=== PATIENT | male | born 1965 | race Hispanic/Latino ===

== ENCOUNTER 2021-11-09 05:42 | Emergency (ER) | payer OTHER ==
--- NOTE | 2021-11-09 09:41 | Emergency Department Report ---
ED Chest Pain HPI - General Chief Complaint: Chest Pain Stated Complaint: CHEST PAIN Time Seen by Provider: 11/09/21 09:15 Source: EMS Mode of arrival: Stretcher Limitations: No Limitations - History of Present Illness Initial Comments: Patient is a 56-year-old male who presents with midsternal chest pain radiating to the left shoulder that has been intermittent for the last 2 weeks. He describes it as a tightness that started at 4:00 this episode. He states he works second shift so he was still awake in sitting down watching TV. Pain was 8 out of 10 at its worst. He was given nitroglycerin in route and it went down to 3 out of 10. The pain is 6 out of 10 at my evaluation. He does state he had some slight "shallow breath" with it. No nausea vomiting or diaphoresis. The patient was seen at [facility] 2 weeks ago for similar pain and had a chemical stress test which was negative. He has a follow-up appointment with the stave block roller in November. Risk factors: No history of hypertension diabetes or hyperlipidemia. Family history is negative for coronary artery disease less than 65. No obesity. Positive history of tobacco use and now he has been vaping for the last several years. - Related Data Previous Rx's Medication Instructions Recorded Last Taken Type traMADoL [Ultram 50 MG tab] 50 mg PO Q6HR PRN #8 tablet 11/09/21 Unknown Rx Allergies Allergy/AdvReac Type Severity Reaction Status Date / Time morphine Allergy Hives Verified 11/09/21 05:44 Heart Score - HEART Score History: Slightly suspicious EKG: Normal Age: 45-65 Risk factors: 1-2 risk factors Troponin: < normal limit HEART Score: 2 - EKG Read Time Time EKG Completed: 22:21 EKG Read Time: 22:21 ED Review of Systems ROS: Stated complaint: CHEST PAIN Other details as noted in HPI Comment: All other systems reviewed and negative Constitutional: denies: chills, fever Eyes: denies: eye pain, eye discharge, vision change ENT: denies: ear pain, throat pain Respiratory: denies: cough, shortness of breath, wheezing Cardiovascular: chest pain. denies: palpitations, dyspnea on exertion, orthopnea, edema, syncope, paroxysmal nocturnal dyspnea Endocrine: no symptoms reported. denies: excessive sweating, intolerance to cold, intolerance to heat, increased hunger, unexplained weight gain, unexplain ed weight loss Gastrointestinal: denies: abdominal pain, nausea, vomiting, diarrhea Genitourinary: denies: urgency, dysuria Musculoskeletal: denies: back pain, joint swelling, arthralgia Skin: denies: rash, lesions Neurological: denies: headache, weakness, paresthesias Psychiatric: denies: anxiety, depression Hematological/Lymphatic: denies: easy bleeding, easy bruising ED Past Medical Hx - Past Medical History Previous Medical History?: Yes Additional medical history: CHRONIC HIP PAIN - Surgical History Past Surgical History?: No - Family History Family history: cancer (Both parents), other (Mother had CHF and her 80s but of cancer.) - Social History Smoking Status: Former Smoker (And continues to vape) Substance Use Type: None Other Social History: - Medications Home Medications: Home Medications Medication Instructions Recorded Confirmed Last Taken Type traMADoL [Ultram 50 MG tab] 50 mg PO Q6HR PRN #8 tablet 11/09/21 Unknown Rx ED Physical Exam - General Limitations: No Limitations General appearance: alert, in no apparent distress - Head Head exam: Present: atraumatic, normocephalic - Eye Eye exam: Present: normal appearance - ENT ENT exam: Present: mucous membranes moist - Neck Neck exam: Present: normal inspection, full ROM - Respiratory Respiratory exam: Present: normal lung sounds bilaterally. Absent: respiratory distress, wheezes, rales, rhonchi, stridor, chest wall tenderness, accessory muscle use - Cardiovascular Cardiovascular Exam: Present: regular rate, normal rhythm, bradycardia. Absent: systolic murmur, diastolic murmur, rubs, gallop - GI/Abdominal GI/Abdominal exam: Present: soft, normal bowel sounds. Absent: distended, tenderness, guarding, rebound, rigid - Rectal Rectal exam: Present: deferred - Extremities Exam Extremities exam: Present: normal inspection - Back Exam Back exam: Present: normal inspection - Neurological Exam Neurological exam: Present: alert, oriented X3 - Psychiatric Psychiatric exam: Present: normal affect, normal mood - Skin Skin exam: Present: warm, dry, intact, normal color. Absent: rash ED Course Vital Signs 11/09/21 11/09/21 05:44 18:10 Temperature 98.2 F 97.5 F L Pulse Rate 54 L 47 L Respiratory 16 16 Rate Blood Pressure 120/74 Blood Pressure 126/70 [Right] O2 Sat by Pulse 100 100 Oximetry - Reevaluation(s) Reevaluation #1: 11/09/21 17:45 Patient had improvement of his pain with Dilaudid and remain resting comfortably during the remainder of his stay. RICHARD score - Richard Score Age > 65: (0) No Aspirin use within the Past 7 Days: (0) No 3 or more CAD Risk Factors: (0) No 2 or more Angina events in past 24 hrs: (1) Yes Known CAD with more than 50% Stenosis: (0) No Elevated Cardiac Markers: (0) No ST Deviation Greater than 0.5mm: (0) No RICHARD Score: 1 ED Medical Decision Making - Lab Data Result diagrams: 11/09/21 09:32 11/09/21 09:32 - EKG Data 11/09/21 17:47 First EKG reveals sinus bradycardia at 43 bpm with out ischemic changes. Repeat EKG 3 hours later reveals sinus bradycardia at 48 bpm without ischemic changes. Patient does state he has a history of asymptomatic bradycardia. - Radiology Data Radiology results: report reviewed, image reviewed [facility] [address] [place] [address] XRay Report Signed Patient: TOMASA JOSE MR#: [id number] : 1965 Acct:[id number] Age/Sex: 56 / M ADM Date: 11/09/21 Loc: ED Attending Dr: Ordering Physician: QUINN CHAMBERLAIN Date of Service: 11/09/21 Procedure(s): XR chest routine 2V Accession Number(s): [id number] cc: QUINN CHAMBERLAIN Fluoro Time In Minutes: CHEST 2 VIEWS INDICATION / CLINICAL INFORMATION: Chest Pain. COMPARISON: None available. FINDINGS: SUPPORT DEVICES: None. HEART / MEDIASTINUM: No significant abnormality. LUNGS / PLEURA: No acute findings. No pneumothorax. ADDITIONAL FINDINGS: No significant additional findings. IMPRESSION: 1. No acute findings. Signer Name: Ruben cMkinney MD Signed: 11/09/2021 9:41 AM Workstation Name: [id number] Transcribed By: Dictated By: Ruben Mckinney MD Electronically Authenticated By: Ruben Mckinney MD Signed Date/Time: 11/09/21940 DD/ 9 TD/TT: - Medical Decision Making Patient is a 56-year-old male with chest pain that has been going on off and on for the last couple weeks. This episode started at 4:00 in the morning at rest. There was no change with nitroglycerin in route. He had no nausea vomiting or diaphoresis with it but did have some "shallow breathing. Patient did have a cardiac work-up including a chemical stress test at [facility] 2 weeks ago per his report. He has an appointment with a stave block roller November 24. His work-up here was essentially normal with the exception of bradycardia. Half a milligram of Dilaudid brought his pain down to nothing. He requests tramadol for his pain as well as a work note. He does not want to stay for further work- up and plans to follow-up with his stave block roller. Critical care attestation.: If time is entered above; I have spent that time in minutes in the direct care of this critically ill patient, excluding procedure time. ED Disposition Clinical Impression: Chest pain Disposition: 01 HOME / SELF CARE / HOMELESS Is pt being admited?: No Condition: Stable Instructions: Nonspecific Chest Pain, Adult, [id number], Pain Without a Known Cause Additional Instructions: Return to ER if worsening pain, shortness of breath nausea vomiting diaphoresis or any other concerning symptoms. Follow-up with your stave block roller as previous. Recommend aspirin 325 mg daily. Prescriptions: traMADoL [Ultram 50 MG tab] 50 mg PO Q6HR PRN #8 tablet PRN Reason: Pain , Severe (7-10) Referrals: PRIMARY CARE,MD [Primary Care Provider] - 3-5 Days Forms: Work/School Release Form(ED) Time of Disposition: 17:54
--- NOTE | 2021-11-09 09:45 | XRay Report ---
CHEST 2 VIEWS INDICATION / CLINICAL INFORMATION: Chest Pain. COMPARISON: None available. FINDINGS: SUPPORT DEVICES: None. HEART / MEDIASTINUM: No significant abnormality. LUNGS / PLEURA: No acute findings. No pneumothorax. ADDITIONAL FINDINGS: No significant additional findings. IMPRESSION: 1. No acute findings. Signer Name: Ruben Mckinney MD Signed: 11/09/2021 9:41 AM Workstation Name: [employer]
[2021-11-09 10:04] LABS: Basophils % (Auto) 0.6 % (0.0-1.8); Eosinophils # (Auto) 0.1 K/mm3 (0.0-0.4); Hematocrit 34.6 % (35.5-45.6); Hemoglobin 11.7 gm/dl (11.8-15.2); Lymphocytes # (Auto) 1.6 K/mm3 (1.2-5.4); Lymphocytes % (Auto) 26.7 % (13.4-35.0); Mean Corpuscular HGB Conc 34 % (32-34); Mean Corpuscular Volume 98 fl (84-94); Monocytes # (Auto) 0.3 K/mm3 (0.0-0.8); Monocytes % (Auto) 5.8 % (0.0-7.3); Platelet Count 214 K/mm3 (140-440); Red Blood Count 3.53 M/mm3 (3.65-5.03)
[2021-11-09 10:13] LABS: Alanine Aminotransferase 16 units/L (7-56); BUN/Creatinine Ratio 14; Blood Urea Nitrogen 11 mg/dL (9-20); Calcium 9.3 mg/dL (8.4-10.2); Hemolysis Index 2
[2021-11-09] MEDS ORDERED: HYDROmorphone 0.5 MG/0.5 ML INJ IV ONE (12:39)
[2021-11-09 18:12] VITALS: BP 126/70
--- NOTE | 2021-11-10 11:45 | Electrocardiograph Report ---
[facility] Test Date: 2021-11-09 Test Time: 12:13:16 Pat Name: TOMASA JOSE Department: Room: Gender: M Events Associate: BERTHA : 1965 Requested By: MEREDITH CONTRERAS Order Number: [id number] Reading MD: Leon Barrett Measurements Intervals [place] Rate: 43 P: 72 NC: 160 QRS: 89 QRSD: 94 T: 75 QT: 495 QTc: 421 Interpretive Statements Sinus bradycardia No previous ECG available for comparison Electronically Signed On 11-10-2021 11:45:08 EDT by Leon Barrett
--- NOTE | 2021-11-10 11:48 | Electrocardiograph Report ---
[facility] Test Date: 2021-11-09 Test Time: 15:23:31 Pat Name: TOMASA JOSE Department: Room: Gender: M [employer] Driver: BERTHA : 1965 Requested By: MEREDITH CONTRERAS Order Number: [id number] Reading MD: Leon Barrett Measurements Intervals [place] Rate: 48 P: 76 IA: 162 QRS: 87 QRSD: 93 T: 71 QT: 464 QTc: 416 Interpretive Statements Sinus bradycardia Compared to ECG 11/09/2021 12:13:16 No significant changes Electronically Signed On 11-10-2021 11:47:53 EDT by Leon Barrett
== END 2021-11-09 18:01 | disposition home or self-care (01) ==
LOC: ED 05:42
DX: R07.9 Chest pain, unspecified (principal); Z87.891 Personal history of nicotine dependence; Z91.09 Other allergy status, other than to drugs and biological substances
CPT/HCPCS: 36415; 71046; 80053; 83690; 84484; 85025; 93005; 96374; 99284; J1170